=== PATIENT | female | born 1955 | race Caucasian/White ===

== ENCOUNTER 2017-12-22 16:27 | Emergency (ER) | payer OTHER ==
--- OUTSIDE RECORDS SUMMARY | 2017-12-22 18:13 | XMS REPORT ---
:1955 External Reference #:[id number] Author Organization [facility] Address [address] [place] [id number] Phone [phone] Care Team Providers Name Role Phone HCP/LW on file Primary Care Physician Unavailable Payers Type Date Identification Numbers Payment Provider Subscriber Commercial Effective: Policy Number: [id number] [facility] Radha Isidro 2017 PayID: [id number] [facility] [address] [place] [address] Problems Date Description Provider Status Onset: 10/03/2013 Essential hypertension Rozina Silver MD Active Onset: 10/03/2013 Osteochondropathy Rozina Silver MD Active Onset: 04/20/2015 Disorder of bone Rush Saucedo M.D. Active Onset: 04/20/2015 Insomnia Rush Saucedo M.D. Active Onset: 04/20/2015 Atopic dermatitis Rush Saucedo M.D. Active Onset: 04/20/2015 Vitamin D deficiency Rush Saucedo M.D. 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 walks 30+ day. Exercise Type/Frequency Exercises regularly Sun Exposure Uses sunscreen Seat Belt/Car Seat Seat Belt Use - Yes Currently Active Patient is currently sexually active Contraceptive Methods None Age 1st [place] 28 Years Old Allergies, Adverse Reactions, Alerts Date Description Reaction Status Severity Comments 10/03/2013 Bactrim Hives active Medications Medication Date Status Form Strength Qnty SIG Indications Ordering Provider Losartan 12/05 Active Tablets 25mg 90tab 1 tablet I10 Silcoff, Potassium /2017 s daily for Rush, high blood M.D. pressure Sertraline HCL 11/21 Active Tablets 25mg 60tab 1 tablet F43.23 Silcoff, s daily in Rush, the morning M.D. x 5 days, then 2 tabs qam if tolerate for depression Fluticasone 09/25 Active Suspension 50mcg/Act 16uni 2 sprays J31.0 Silcoff, Propionate ts into each Rush nostril M.D. once daily for nasal congestion Transderm-Scop 09/25 Active Patches 1mg/3Days 6unit apply 1 T75.3xxA Silcoff, (1.5 MG) 72HR s patch as Rush, needed, at M.D. least 4 hours before exposure to motion sickness causing travel; change q3 days if needed Calcium Plus 02/13 Active one po Silcoff, Vitamin D daily Anahi Beverly Temazepam 02/13 Active Capsules 15mg 60cap 1-2 by G47.00 Silcoff, s mouth every Rush, night as M.D. needed for sleep Vitamin D3 Super 04/19 Active Tablets 2000Unit 1 by mouth Unknown every day Naprosyn 10/03 Active Tablets 500mg 90tab one pill Silcoff, s every 12 Rush, hours as M.D. needed for joint and muscle pain; take with food Desoximetasone 10/03 Active Cream 0.05% 60gm using twice L20.9 Silcoff, a day as Rush needed M.D. eczema Lorazepam Active Tablets 0.5mg 60tab 1/2- 1 tab Silcoff, / s up to three Rush, times a day M.D. for depression Losartan 09/25 Hx Tablets 100mg take 1/2 I10 Silcoff, Potassium tablet Rush, - daily for M.D. 12/05 high blood pressure Losartan 07/26 Hx Tablets 100mg 90tab take 1 I10 Silcoff, Potassium s tablet Rush, - daily for M.D. 09/25 high blood pressure Losartan 05/26 Hx Tablets 50mg 90tab take one I10 Silcoff, Potassium s tablet by Rush, - mouth every M.D. 07/26 morning for high blood pressure Transderm-Scop 01/28 Hx Patches 1mg/3Days 3unit apply 1 Silcoff, (1.5 MG) 72HR s patch to Rush, - hairless M.D. 05/28 area behind ear starting 12 hours prior to boat travel; replace q3 days as needed; for motion sickn Calcium 600+D 04/20 Hx Silcoff, Rush, - M.D. 02/12 Calcium 600+D 11/10 Hx Tablets 600-400mg 2 by mouth -Unit every day - 04/20 Temazepam 10/03 Hx Capsules 15mg 30cap 1 by mouth G47.00 s every day Rush, - every night M.D. 02/13 as needed for insomnia while travelling. Multivitamins 10/02 Hx Capsules 1 po qd - 04/19 Fish Oil 10/02 Hx Capsules 1 po daily - 05/01 Probiotic Daily 00 Hx Capsules 2 caps Unknown / once daily - 02/12 Immunizations CPT Code Status Date Vaccine Lot # [id number] Given 02/02/2017 Influenza Virus Vaccine, Quadrivalent, Split, [id number] Preservative Free [id number] Given 01/20/2016 Influenza Virus Vaccine, Quadrivalent, Split, [id number] Preservative Free 22873 Given 01/14/2015 Influenza Virus Vaccine, Quadrivalent, Split, [id number] Preservative Free 68989 Given 10/23/2014 Zostavax [id number] Given 02/14/2014 Flu, Split Virus [id number] Vital Signs Date Vital Result Comment 12/05/2017 BP Systolic 112 mmHg BP Diastolic 62 mmHg Weight 137.50 lb w/sneakers 11/21/2017 BP Systolic 130 mmHg BP Diastolic 70 mmHg Weight 136.00 lb 09/25/2017 BP Systolic 110 mmHg BP Diastolic 60 mmHg BP Systolic Recheck 104 mmHg R arm sitting BP Diastolic Recheck 62 mmHg R arm sitting Height 64 inches 5'4" with sneakers Weight 144.00 lb with sneakers BMI (Body Mass Index) 24.7 kg/m2 05/26/2017 BP Systolic 136 mmHg L arm her cuff BP Diastolic 80 mmHg L arm her cuff BP Systolic Recheck 144 mmHg L arm our cuff BP Diastolic Recheck 80 mmHg L arm our cuff Weight 143.00 lb Head Circumference 64.5 inches Head Circumference in cm's 163.8 cm 05/26/2017 BP Systolic 128 mmHg pt's mach 135/74 BP Diastolic 78 mmHg pt's mach 135/74 Weight 143.00 lb 02/27/2017 BP Systolic 135 mmHg L arm w/ her cuff BP Diastolic 80 mmHg L arm w/ her cuff BP Systolic Recheck 142 mmHg L arm ours; 144/84 R arm BP Diastolic Recheck 88 mmHg L arm ours; 144/84 R arm 02/27/2017 BP Systolic 128 mmHg 142/82 pt mach BP Diastolic 82 mmHg 142/82 pt mach Weight 145.00 lb 02/13/2017 BP Systolic 138 mmHg BP Diastolic 80 mmHg BP Systolic Recheck 160 mmHg R arm sitting BP Diastolic Recheck 86 mmHg R arm sitting Height 64.25 inches 5'4.25" with shoes Weight 147.00 lb with shoes BMI (Body Mass Index) 25.0 kg/m2 04/20/2015 BP Systolic 132 mmHg BP Diastolic 68 mmHg 10/08/2014 BP Systolic 120 mmHg BP Diastolic 75 mmHg Height 64.5 inches 5'4.50" Weight 144.00 lb with sneakers BMI (Body Mass Index) 24.3 kg/m2 10/03/2013 BP Systolic 130 mmHg BP Diastolic 88 mmHg Height 64 inches 5'4" Weight 137.00 lb BMI (Body Mass Index) 23.5 kg/m2 Results Test Date Test Result H/L Range Note Basic Metabolic Panel 08/14/2017 Sodium 139 mmol/L 139-145 Potassium 4.5 mmol/L 3.5-5.0 Chloride 107 mmol/L 101-111 Co2 Carbon Dioxide 30 mmol/L 22-32 Anion Gap 2 mmol/L 2-11 Calcium 9.2 mg/dL 8.6-10.3 Glucose 97 mg/dL 70-100 Blood Urea Nitrogen 21 mg/dL 6-24 Creatinine 0.84 mg/dL 0.51-0.95 BUN/Creatinine Ratio 25.0 High 8-20 Egfr Non- 68.7 >60 Egfr 88.4 >60 1 Basic Metabolic Panel 07/04/2017 Sodium 137 mmol/L 133-145 Chloride 102 mmol/L 101-111 Co2 Carbon Dioxide 31 mmol/L 22-32 Glucose 100 mg/dL 70-100 Blood Urea Nitrogen 19 mg/dL 6-24 Creatinine 1.03 mg/dL High 0.51-0.95 BUN/Creatinine Ratio 18.4 8-20 Calcium 9.7 mg/dL 8.6-10.3 Egfr Non- 54.3 >60 Egfr 69.8 >60 2 Potassium 5.1 mmol/L High 3.5-5.0 Anion Gap 4 mmol/L 2-11 Lipid Profile (Trig/Chol/HDL) 07/04/2017 Triglycerides 64 mg/dL 3 Cholesterol 191 mg/dL 4 HDL Cholesterol 53.2 mg/dL 5 LDL Cholesterol 125 mg/dL 6 Laboratory test finding 07/04/2017 Alt 13 U/L 7-52 7 Laboratory test finding 11/02/2015 Cytology SEE RESULT BELOW 8 Laboratory test finding 10/08/2014 Vitamin D Total 29.7 ng/mL Low 30-50 9 25(Oh) Hemoglobin A1c (Glyco HGB) 5.8 % Less than 6.0 9, 10 Glucose 84 mg/dL 70-100 9 1 Because ethnic data is not always readily available, this report includes an eGFR for both -Americans and non- Americans. The National Kidney Disease Education Program (NKDEP) does not endorse the use of the MDRD equation for patients that are not between the ages of 18 and 70, are , have extremes of body size, muscle mass, or nutritional status, or are non- or non-. According to the National Kidney Foundation, irrespective of diagnosis, the stage of the disease is based on the level of kidney function: Stage Description GFR(mL/min/1.73 m(2)) 1 Kidney damage with normal or decreased GFR 90 2 Kidney damage with mild decrease in GFR 60-89 3 Moderate decrease in GFR 30-59 4 Severe decrease in GFR 15-29 5 Kidney failure <15 (or dialysis) 2 Because ethnic data is not always readily available, this report includes an eGFR for both -Americans and non- Americans. The National Kidney Disease Education Program (NKDEP) does not endorse the use of the MDRD equation for patients that are not between the ages of 18 and 70, are , have extremes of body size, muscle mass, or nutritional status, or are non- or non-. According to the National Kidney Foundation, irrespective of diagnosis, the stage of the disease is based on the level of kidney function: Stage Description GFR(mL/min/1.73 m(2)) 1 Kidney damage with normal or decreased GFR 90 2 Kidney damage with mild decrease in GFR 60-89 3 Moderate decrease in GFR 30-59 4 Severe decrease in GFR 15-29 5 Kidney failure <15 (or dialysis) 3 Desirable: <150 Borderline High: 150-199 High: 200-499 Very High: >500 4 Desirable: <200 Borderline High: 200-239 High: >239 5 Low: <40 Desirable: 40-60 High: >60 6 Desirable: <100 Near Optimal: 100-129 Borderline High: 130-159 High: 160-189 Very High: >189 7 FASTING 12 HOUR 8 SEE RESULT BELOW Name: RADHA ISIDRO : [address]: Wandy Arias Acct: [id number] Unit: [id number] AGE: 60 Location: [facility] Re11/02/15 SEX: F Status: REG REF SPEC: [id number] GABINO: 11/02/15-[address]: Wandy Arias REQ: [id number] RECD: 11/03/15-105 STATUS: TAWNY OCONNOR DR: Rush Saucedo MD _ ORDERED: IMAGE ANALYSIS, HPV/Thin Prep COMMENTS: [id number] FINAL DIAGNOSIS Negative for Intraepithelial lesion or Malignancy A. Ectocervical/Endocervical Specimen Adequacy: Satisfactory of evaluation Transformation zone component cannot be definitely identified due to presence of atrophy or other hormonal changes Patient Information: HPV: Thin Layer Pap Test w/reflex to high risk HPV RNA testing when ASCUS Actual Specimen Date: 11/02/15 LMP If Unknown: 08/2004 Date of Last Specimen: 09/13/12 Date Time Test Result Flag (u) Normal Range 11/02/15 1513 HPV RNA Negative Negative The high-risk HPV types detected by the assay include: 16, 18, 31, 33, 35, 39, 45, 51, 52, 56, 58, 59, 66, and 68. Signed (signature on file) AMY Wilson(ASCP) 11/03 1049 This Pap test was evaluated with the assistance of the enavuPrep Test Imaging System. Due to cytologic findings at the architectural inspector microscope, comprehensive manual rescreening by a Manager Commercial Real Estate may be required. The Pap Smear is a screening test designed to aid in the detection of premalignant and malignant conditions of the uterine cervix. It is not a diagnostic procedure and should not be used as the sole means of detecting cervical cancer. Both false- positive and false- negative reports do occur. Depending on your risk status, a Pap smear should be obtained and evaluated every 1-3 years. END OF REPORT * ML=Testing performed at Main Lab DEPARTMENT OF PATHOLOGY, [address] [place] [address] Jasson Ford M.D. Director [facility] # [id number] 9 Hepatitis C test was ordered after the lab order was printed. SL 10 Therapeutic target for the treatment of diabetes Mellitus patients is <7% HBA1C, and in selective patients <6.0%.Please refer to [place] Diabetes Association Diabetic care guidelines for further information. Procedures Date CPT Code Description Status Comment 03/08/2017 Mammogram Completed complicated by dense breasts 02/13/17: Discussed mammo screenign interval; she is going to have one in 2017 then consider changing to q2yrs 10/23/2014 31126 Dexa Bone Density Study One Completed Or More Sites Axial Skeleton 10/23/2014 29908 Dexa Bone Density Study One Completed Or More Sites Axial Skeleton 04/17/2012 Colonoscopy Completed q5 years x3 Encounters Type Date Location Provider CPT E/M Dx Office Visit 12/05/2017 11:00a Main Office Aylin Dupree 90694 F43.23 I10 Z71.89 Office Visit 11/21/2017 10:40a Main Office Aylin Dupree 32687 R53.83 F43.23 Z71.89 Office Visit 09/25/2017 1:15p Main Office Rush Saucedo M.D. 92933 I10 J31.0 T75.3xxA Z29.8 Office Visit 05/26/2017 1:45p Main Office Rush Saucedo M.D. 43474 I10 Z13.220 Office Visit 02/27/2017 3:45p Main Office Rush Saucedo M.D. 54700 R51 I10 Office Visit 02/13/2017 2:00p Main Office Rush Saucedo M.D. 89460 Z00.00 I10 G47.00 R01.1 Z12.39 Z71.89 Office Visit 04/20/2015 9:15a Main Office Rush Saucedo M.D. 02216 M85.9 G47.00 L20.9 E55.9 Office Visit 10/08/2014 10:45a [place] [address] V70.0 V76.19 V16.3 V16.0 780.52 733.90 790.21 729.5 V75.9 Office Visit 10/03/2013 12:55p [place] [address] 733.90 272.0 V16.3 V16.0 780.52 Plan of Care Future Appointment(s):02/14/2018 1:30 pm - Rush Saucedo M.D. at Main [facility]1912/05/2017 - Aylin DupreeF43.23 Adjustment disorder with mixed anxiety and depressed moodComments:Pt signing a release so I can contact July Rose to see if can get pt into see her soon (Signed)unable to see July on 12/19 I tried to call July after appt, NA, LM to call me.Follow up:Contact me in one week with update on medications. Would like to increase the sertraline to 3 tabs in the morning if you are feeling less shaky -which you described as discussed, try to decrease Lorazepam to 1/2 tab per day Encouraging volunteering at the [id number] Essential (primary) hypertensionNew Medication: Losartan Potassium 25 mgComments: pt will try to cut into 1/4 tabs the meds she has on handFollow up:pt advised to report cp, change in angina , sob etc.Z71.89 Other specified counseling
[2017-12-22 18:22] VITALS: BP 114/59
[2017-12-22] MEDS ORDERED: Tetan/Diph/Pertus SYR(Tdap)* 0.5 ML SYR(BOOSTRIX) use SYR IM ONE (18:40)
--- NOTE | 2017-12-22 19:24 | UC ---
Laceration HPI - HPI Summary HPI Summary: 62-year-old female presents with lacerations to her left anterior lower leg. States she was walking outdoors, accidentally stepped into a ditch, and struck her left lower leg on a metal culvert. Bleeding is controlled. Unsure of her tetanus status. - History Of Current Complaint Chief Complaint: UCLowerExtremity Stated Complaint: LEG LACERATION Time Seen by Provider: 12/22/17 18:30 Hx Obtained From: Patient Mechanism Of Injury: Blunt Trauma Onset/Duration: Sudden Onset Pain Intensity: 4 Aggravating Factors: Nothing Full Body (No Head): 1 - 3 cm linear superficial laceration with underlying hematoma 2 - 2 cm superficial linear laceration - Allergies/Home Medications Allergies/Adverse Reactions: Allergies Allergy/AdvReac Type Severity Reaction Status Date / Time sulfamethoxazole Allergy Rash Verified 12/22/17 18:23 Home Medications: Home Medications HYDROcodone/ACETAMIN 5-325 MG* [[place] 5-325 TAB*] 1 tab PO Q6HR PRN 12/22/17 [ History Confirmed 12/22/17] Losartan TAB* [Cozaar TAB*] 25 mg PO DAILY 12/22/17 [History Confirmed 12/22/17] Naproxen [Naprosyn 500 mg tab] 500 mg PO Q6HR 12/22/17 [History Confirmed ] PMH/Surg Hx/FS Hx/Imm Hx - Additional Past Medical History Additional PMH: Denies significant PMH - Surgical History Surgical History: Yes Surgery Procedure, Year, and Place: melanoma removal - Family History Family History: Noncontributory - Social History Occupation: Employed Full-time Lives: With Family Alcohol Use: None Substance Use Type: None Smoking Status (MU): Never Smoked Tobacco Review of Systems Constitutional: Negative Skin: Other - See HPI Motor: Negative Neurovascular: Negative Musculoskeletal: Negative Is Patient Immunocompromised?: No All Other Systems Reviewed And Are Negative: Yes Physical Exam Triage Information Reviewed: Yes Appearance: Well-Appearing, No Pain Distress, Well-Nourished Vital Signs: Initial Vital Signs Temp 98 F 12/22/17 18:15 Pulse 65 12/22/17 18:15 Resp 16 12/22/17 18:15 BP 114/59 12/22/17 18:15 Pulse Ox 99 12/22/17 18:15 Respiratory: Positive: No respiratory distress Cardiovascular: Positive: Pulses Normal, Brisk Capillary Refill Musculoskeletal Exam: Normal Neurological: Positive: Alert, Other: - Sensation intact Skin: Positive: significant lesion(s) - Superficial lesions. See diagram. Laceration Repair - Laceration Repair 1 Description: Linear Laceration Size After Repair: Length (cm) - 3 Modified For Repair: No Cleansing Completed Via Routine Prep: Yes Irrigation With Pressure Irrigation Device: Yes Closure Material: Skin Adhesive, SteriStrips - 3 Closure Method: Single Layer 2 Description: Linear Laceration Size After Repair: Length (cm) - 2 Modified For Repair: No Cleansing Completed Via Routine Prep: Yes Irrigation With Pressure Irrigation Device: Yes Closure Material: Skin Adhesive, SteriStrips Laceration Course/Dx - Course/Dx Course Of Treatment: 62 year old female with 2 superficial lacerations to the anterior left lower leg. Wounds were cleansed then closed with Steri-Strips and skin adhesive. Tetanus updated. Wound care instructions as well as warning symptoms for follow up were preovided. Verbalizes understanding and agrees with POC. - Differential Dx - Laceration/Wound Provider Diagnoses: Superficial lacerations to left lower leg Discharge - Sign-Out/Discharge Documenting (check all that apply): Patient Departure All imaging exams completed and their final reports reviewed: No Studies - Discharge Plan Condition: Stable Disposition: HOME Patient Education Materials: Laceration (ED), Skin Adhesive Care (ED) Referrals: Rush Saucedo MD [Primary Care Provider] - If Needed Additional Instructions: Your tetanus was updated in the clinic today. Be sure to notify your primary care provider so that your records can be updated. Your lacerations were closed using a skin adhesive. You should not get this wet for the next 24 hours. After 24 hours he may go ahead and start showering is normal. You should avoid submerging the wound though under water such as with taking a bath or swimming until fully healed. Steri-Strips were also used in the closing of your wound. These will slowly begin to peel up from the ends. You may trimly ends but do not pull off the Steri-Strips as this may reopen your wound. Allow both the adhesive and Steri-Strips to come off on their own. Keep your wounds covered with a gauze dressing. Do not apply any antibiotic ointments or lotions to the wounds as this may dissolve the skin adhesive and allow the wound to reopen. He may take an [id number]-mwdkfrn pain medication such as acetaminophen (Tylenol) or ibuprofen (Motrin, Advil) according to directions as needed for any pain. Watch for any signs of infection including a temperature greater than 100.5 F, redness that spreads, swelling of the area, pain that is not managed with over- the-counter pain medication, or any pus draining from the wound. Seek immediate medical attention should any of these occur. - Billing Disposition and Condition Condition: STABLE Disposition: Home
== END 2017-12-22 19:35 | disposition home or self-care (01) ==
LOC: UCEAST 16:27
DX: S81.812A Laceration without foreign body, left lower leg, initial encounter (principal); W26.8XXA Contact with other sharp object(s), not elsewhere classified, initial encounter; Y93.01 Activity, walking, marching and hiking; Y92.9 Unspecified place or not applicable; Z23 Encounter for immunization; Z88.2 Allergy status to sulfonamides
CPT/HCPCS: 12002; 90471; 90715; 99211; 99212; G0463